=== PATIENT | male | born 1935 | race Caucasian/White ===

== ENCOUNTER 2017-07-23 13:42 | Inpatient (IN) | payer OTHER, BC ==
[2017-07-23 16:17] LABS: PLATELET COUNT 231 10^3/uL (150-400)
--- NOTE | 2017-07-23 16:18 | EDPHY ---
H & P <Doug Stafford - Last Filed: 07/23/17 21:43> Stated Complaint: confused - Personal History Current Tetanus/Diphtheria Vaccine: Unsure Current Tetanus Diphtheria and Acellular Pertussis (TDAP): Unsure - Medical/Surgical History Hx Asthma: No Hx Chronic Respiratory Disease: No Hx Diabetes: No Hx Cardiac Disease: Yes Hx Renal Disease: No Hx Cirrhosis: No Hx Alcoholism: No Hx HIV/AIDS: No Hx Splenectomy or Spleen Trauma: No Other PMH: BPH, CAD, reflux, cervical surgery, - Social History Smoking Status: Never smoked <Dionne Rasmussen - Last Filed: 07/24/17 23:05> Time Seen by Provider: 07/23/17 14:54 HPI/ROS: CHIEF COMPLAINT: Concerns about mental health stability HISTORY OF PRESENT ILLNESS: 82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 They both provide history. The patient informs me that he has been involved in an argument with his , left his home in [place] few days ago after an argument with his . He is in the ER with a family friend who relays to me in private that she has been receiving unusual , unsolicitied emails, most recently a few nights ago which the patient' s friend describes as lengthy, rambling, manifesto-style e-mail of several pages that was sent to her as well as the magazine editor of the [employer]. 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 REVIEW OF SYSTEMS: A ten point review of systems was performed and is negative with the exception of the items mentioned in the HPI PAST MEDICAL & SURGICAL HISTORY: Metastatic prostate cancer, cardiac stenting. SOCIAL HISTORY: Denies acute alcohol or drug use. Current living at the [facility] PHYSICAL EXAM (Prior to examination, patient consented to physical exam, hands were washed and my usual and customary physical exam procedures followed) 1) GENERAL: Well-developed, well-nourished, alert and oriented. Appears to be in no acute distress. 2) HEAD: Normocephalic, atraumatic 3) HEENT: Pupils equal, round, reactive to light bilaterally. Sclera anicteric. 4) NECK: Full range of motion, no meningeal signs. 5) LUNGS: Clear auscultation bilaterally, no wheezes, no rhonchi, no retractions. 6) HEART: Regular rate and rhythm, no murmur, no heave, no gallop. 7) ABDOMEN: No guarding, no rebound, no focal tenderness, negative McBurney's,, 8) MUSCULOSKELETAL: Moving all extremities, no focal areas of tenderness, no obvious trauma. No peripheral edema or discoloration. 9) BACK: No CVA tenderness, no midline vertebral tenderness, no fluctuance, no step-off, no obvious trauma, no visual or palpable abnormality. 10) SKIN: No rash, no petechiae. 11) Psychiatric: Patient is oriented X 3, there is no agitation. He is answering questions appropriately. DIFFERENTIAL DIAGNOSIS: In no particular include but limited to delirium, dementia, intracranial malignancy (Dionne Rasmussen) Constitutional: Initial Vital Signs Temperature (C) 36.4 C 07/23/17 13:51 Heart Rate 76 07/23/17 13:51 Respiratory Rate 16 07/23/17 13:51 Blood Pressure 173/79 H 07/23/17 13:51 O2 Sat (%) 96 07/23/17 13:51 O2 Delivery Mode Room Air Allergies/Adverse Reactions: No Known Allergies Allergy (Verified 07/23/17 13:50) Home Medications: Medication Instructions Recorded Zolpidem Tartrate [Ambien 10 mg] 5 - 10 mg PO DAILY PRN 07/14/14 Bicalutamide [Casodex (*)] 50 mg PO DAILY 07/23/17 Herbals/Supplements -Info Only 1 tab PO DAILY 07/23/17 traMADol [Ultram 50 mg (*)] 50 mg PO DAILY PRN 07/23/17 Medical Decision Making - Diagnostics Imaging: Discussed imaging studies w/ behavioral health care coordinator Radiologist, I viewed and interpreted images myself <Doug Stafford - Last Filed: 07/23/17 21:43> <Dionne Rasmussen - Last Filed: 07/24/17 23:05> ED Course/Re-evaluation: Study: CT of the Head Indication: Altered mental status Results: CT scan of the body parts was obtained. The results of the study are normal. The study was read by the radiologist, Dr. Navarro. I viewed the images myself on the PACS system. I re-evaluated this patient at 6:15 p.m.. He has had a long a opportunity to chat with his son who is very reasonable. His son and I agree that performing a head CT scan would be the best option simply because he is an 82-year-old gentleman with history of prostate cancer and he is here with some new onset altered mental status. I believe his paranoia a delusional manic he state to be baseline psychiatric. We will get a psychiatric pending at this time. The patient adamantly refuses a CT scan. He has full capacity to make decision. 7:15 PM- The patient agreed to a head CT which shows no acute findings for his symptoms. I had a long discussion with the psychiatric team. They do not feel like his recent too weak altered mentation is secondary to a psychiatric disorder at his age. Both of his siblings are in agreement that he changed significantly over the last 2 weeks and also correlates with him eating edible marijuana products. He is positive for marijuana. He also endorses the fact he has been using edibles. I have discussed the case with Dr. Reg Veloz who will accept the patient for admission until he clears. All of his laboratory studies and neuro imaging or unremarkable except for the urine tox marijuana. 9:45 PM- Dr. Veloz evaluated this patient and will admit him but feels that this may be psychiatric in nature as his personal history is not consistent with a psychiatrically stable person and family reports he has had similar but less severe episodes in the past. Dr. Veloz feels that he may benefit from an MRI to rule out frontal lobe conditions. I talked with Dr. Balbuena, psychiatry, who will consult. (Doug Stafford) 4:00 p.m.: I spoke with the patient's , Gwen Rae, phone [phone], at this time. She is currently in [place] managing her restaurant. She informs me that she notes a progressive decline the patient's of mental status, he has become progressively more agitated, she has concerns about his ability to care for himself and does not feel he should be allowed to leave the emergency department without, at a minimum, mental health evaluation. Patient's friend, Latisha Bach, [phone]. 4:[address] the patient on a detainer as his friend and have expressed progressive deterioration of mental condition and concerns over his ability to care for himself. 4:37 pm: Spoke with the patient's son Jessee, informs at the patient' s other son, Yong,a physician in [place], is en route to [facility] 5:00 p.m.: Care turned over to Dr. Doug Stafford (Dionne Rasmussen) - Data Points Laboratory Results: Laboratory Results 07/23/17 16:00 07/23/17 16:00 07/23/17 16:14 RPR Pending Medications Given: Bicalutamide (Casodex) 50 mg PO DAILY [facility] Stop: 01/20/18 08:59 Last Admin: 07/24/17 10:03 Dose: Not Given Enoxaparin Sodium (Lovenox) 40 mg SC DAILY [facility] Stop: 01/20/18 08:59 Last Admin: 07/24/17 10:06 Dose: Not Given Quetiapine Fumarate (Seroquel) 12.5 mg PO BID [facility] Stop: 01/20/18 20:59 Last Admin: 07/24/17 22:43 Dose: 12.5 mg Discontinued Medications Haloperidol (Haldol) 1 mg PO ONCE ONE Stop: 07/23/17 22:07 Last Admin: 07/23/17 23:33 Dose: Not Given Sodium Chloride (Ns) 1,000 mls @ 0 mls/hr IV ONCE ONE PRN Reason: Wide Open Stop: 07/23/17 16:42 Last Admin: 07/23/17 18:56 Dose: Not Given Departure <Doug Stafford - Last Filed: 07/23/17 21:43> <Dionne Rasmussen - Last Filed: 07/24/17 23:05> - Departure Disposition: [facility] Acute Clinical Impression: Altered mental status Qualifiers: Altered mental status type: delirium Qualified Code(s): R41.0 - Disorientation , unspecified Condition: Fair
[2017-07-23] MEDS ORDERED: NS 1,000 ML IV ONE (16:41)
[2017-07-23] MEDS ORDERED: IOPAMIDOL (ISOVUE 370) 100 ML BTL IV ONE (16:46)
[2017-07-23] MEDS ORDERED: ACETAMINOPHEN 325 MG TAB PO PRN (22:04)
[2017-07-23] MEDS ORDERED: ONDANSETRON DISINTEGRATING 4 MG TAB PO PRN (22:04)
[2017-07-23] MEDS ORDERED: ONDANSETRON 4 MG/2 ML VIAL IVP PRN (22:04)
[2017-07-23] MEDS ORDERED: HALOPERIDOL 1 MG TAB PO ONE (22:06)
[2017-07-23] MEDS ORDERED: HALOPERIDOL 1 MG TAB PO PRN (22:06)
--- NOTE | 2017-07-23 23:12 | GHP ---
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 The patient sounds like he has prostate cancer. He has been using marijuana edibles for a period of time. He does not appear acutely intoxicated. He says he h as not used them in a couple of weeks. He does describe the 10 mg jellybeans, which is a somewhat hi gh dose of an edible. The patient then gets into a story of some marital discord with the 6th . It sounds like he has been living in places. His stories have a fair amount of paranoia in them. H is son is present at the bedside who acknowledges this paranoia and states the behavior is different for him, but then when I pushed a little bit further, it sounds like in the setting of relationship b reak ups in the past, the patient has become a little bit unstable or at least dramatic. The patient denies any fever, chills, cough, sputum, nausea, vomiting, diarrhea. He does not have a headache. He does not drink alcohol. He has not used other substances. He does not take benzodiazepine or opi ates at home. The patient does not appear intoxicated on alcohol. No fever, chills, cough, sputum, nausea, vomiting, diarrhea. No urgency, frequency, dysuria. REVIEW OF SYSTEMS: A complete 10-point review of systems conducted, negative except as noted in the HPI. PAST MEDICAL HISTORY: Prostate cancer for which he takes a bicalutamide. He does take Ambien and tr amadol, is not clear how much he has been using. SOCIAL HISTORY: He is a nonsmoker. 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 FAMILY HISTORY: Son is healthy, at the bedside. PHYSICAL EXAMINATION: VITAL SIGNS: Temp 36.4, blood pressure 173/79, now 142/80, pulse 76, breathin g 16 times a minute, 96% on room air. GENERAL: No acute distress. HEENT: Sclerae anicteric. Oropha rynx clear. Mucous membranes are moist. NECK: Supple without lymphadenopathy or JVD. LUNGS: Ngoc r to auscultation bilaterally. HEART: S1, S2 without murmurs. ABDOMEN: Soft, nontender, nondistended. LOWER EXTREMITIES: Withou t edema. Calves are nontender. SKIN: Without rash. NEUROLOGIC: Exam is nonfocal. Mental status ex am: The patient is somewhat manic in nature with pressured speech that is tangential. There is an e lement of paranoia to his speech. LABS: Tox screen is positive for marijuana. UA shows 3-5 white cells. Sodium 140, potassium 4.1, c hloride 101, bicarb 26, BUN 16, creatinine 0.9, glucose 127. CBC is normal. Head CT is unremarkable . I discussed the case Dr. Doug Stafford of the emergency department. ASSESSMENT AND PLAN: An 82-year-old gentleman presents with paranoid encephalopathy of uncertain amanda ology. 1. Encephalopathy/paranoia. The differential includes marijuana intoxication, frontal CVA, geriatri c depression with psychotic features. I actually think the last is the most likely diagnosis. The p atient appears medically well. This could be an unusual but conceivable reaction to marijuana. He h as an otherwise nonfocal neurologic exam, so I think a frontal CVA is unlikely. He was seen by a [facility] non physician provider in the emergency department, who felt it was not psych. I disagree with this assessment. Dr. Batool Balbuena is going to speak with Dr. Stafford and will hopefully see the patient in consultation tomorrow. I think it is important to rule out a CVA so will check an MRI of the brain . We will check a TSH. I will give him 1 mg of Haldol and then as needed thereafter. I will hold h is Ambien and tramadol as these medications could be exacerbating the situation. 2. Query marijuana intoxication. If this resolves tomorrow, then perhaps this is all marijuana into xication. The edibles can be powerful, particularly in people who have some difficulty with mood sta bility, but this again would be unusual presentation. 3. Hyperglycemia. This is a mild nonfasting sample. 4. Prostate cancer. Continue his Casodex. DISPOSITION: Inpatient status. /[id number]/MODL
[2017-07-24] MEDS: BICALUTAMIDE 50 MG TAB PO SCH (10:03)
[2017-07-24] MEDS: ENOXAPARIN 40 MG/0.4 ML SYR SC SCH (10:06)
--- NOTE | 2017-07-24 10:28 | ASMTCMCOM ---
CM Note CM Note Notes: Pt. is an 82-year-old man admitted with confusion, paranoia, and encephalopathy. Hx. prostate cancer. Hx. of having six sequential wives per H&P. Hx. of using marijuana edibles. Unsure if this admission is related to THC use. [facility] reportedly saw Pt, but hospitalist ordered psychiatric evaluation. Reportedly, Batool Balbuena MD to see Pt. today. Tox screen positive for THC. Pt. has a son Yong who is involved. 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 No PT/OT ordered as of yet. CM to follow. Date Signed: 07/24/2017 10:27 AM Electronically Signed By:Katy Middleton LCSW
--- NOTE | 2017-07-24 15:23 | HOSPPROG ---
Hospitalist Progress Note Assessment/Plan: 82 yo M with hx of prostate cancer presenting with AMS. # acute encephalopathy: with paranoia and tangential thoughts, baseline somewhat unclear with a hx of what sounds like erratic behavior for quite some time and given his age concerning that this may not all be psychiatric in nature. Brain MRI without acute findings, personally reviewed. No e/o infection. Does have a hx of ingestion of MJ but unclear how recent that has been. Neuro recommending quetiapine and f/u with them after dc. Psych recommending further testing. Will check b12/rpr for further evaluation. # psychiatric sxs: as above, appreciate psych eval # MJ use: unclear how this is contributing as timeline of use is unclear, monitoring, recommending cessation # hx of prostate cancer: continue casodex # dispo: IP status, given ongoing mental instability and uncertain clinical picture will require > 48 hours stay Patient new to my care. Care plan reviewed with psychiatry. Old records reviewed. Subjective: no acute overnight events, patient remains somehwat agitated Objective: Vital Signs Temp Pulse Resp BP Pulse Ox 36.6 C 50 L 16 128/76 H 95 07/24/17 11:03 07/24/17 11:03 07/24/17 11:03 07/24/17 11:03 07/24/17 11:03 Laboratory Results 07/24/17 04:29 07/23/17 07/24/17 07/25/17 05:59 05:59 05:59 Intake Total 250 Output Total 175 225 Balance 75 -225 awake alert anicteric op clear rrr no mrg cta b soft nt nd no cce warm dry well perfused - Time Spent With Patient Time Spent with Patient: greater than 35 minutes Time Spent with Patient: Greater than 35 minutes spent on this patients care, greater than 50% of time spent counseling, educating, and coordinating care regarding the above mentioned plan. ICD10 Worksheet Patient Problems: Problems Problem Status Onset Cervical stenosis of spinal canal Acute Altered mental status Acute
--- NOTE | 2017-07-24 16:33 | NEUROPROG ---
Assessment: HOSPITAL NEUROLOGY CONSULT REQUESTING: Lenard Mcmanus MD REASON: AMS HPI: 82 year old right-handed man admitted yesterday, 07/23, through the ED due to AMS. Patient is very pleasant and cooperative and relays a rather complex and winding story, which never ends with him arriving here. He states his left for a trip to [facility], which inspired a trip to [place]. He likes to travel and see different cities - his primary residence is in [place]. He states he wanted to do some work with the [employer] group in [facility], so got an AirBnB. He states he left the AirBnB after a few days and checked into the [facility], as he wanted a change of scenery and nicer accommodations. On arriving, he states management kept calling his room, wanting to check for a leak in the shower - he declined, as he thought something was awry since he hadn 't noted any shower leak. He states management kept calling tying to get him to leave his room. He states this is because they were trying to do him harm. He also notes that he just didn't want to leave the room for any reason " because someone could just bump into me and kill me, I mean, I'm 82 years old." He eventually left the room, because the [facility] reportedly offered to let him stay for 3 months if he changed rooms. He was agreeable to this, and states the new room had no power, phone service or internet, which alarmed him because he thought this was an ideal setup for someone to kill him without being identified. This story is also intertwined with that of his returning from [facility] and wanting to take his car for herself. He also notes his son has been trying to get him to move into a mcc and has been "unstable and very explosive towards me." In any event, he somehow made it to the ED via Uber with a friend. His mental status was of concern given his paranoia. I don't have any family available for interview, but per the record he has been 6 times and with each subsequent separation there have been indications of worsening stability. He denies any hallucinations, gait change, weakness, sensory loss, visual disturbance, HAs, periods of lost time, LOC, adventitial movements, stiffness/ rigidity in the limbs. He does have a background of cannabis use - states he uses edibles but hasn't done so for 2 weeks. He uses zolpidem 3 nights weekly. He also uses tramadol PRN. He is agreeable to being transitioned to a supervised living setting and also to taking medications. He states he knows the hospital staff is trying to help. ROS: As per the HPI, otherwise a complete 12 point ROS was performed and is negative ALLERGIES AND MEDS: As recorded in the EMR - reviewed and reconciled PFSH: As per the intake H&P by Dr. Veloz from yesterday EXAM: VS reviewed in EMR GEN: WDWN laying in NAD HEENT: NCAT, sclera anicteric, conjunctiva not injected, MMM, oropharynx clear, no scalp tenderness NECK: supple, nontender, no meningismus CV: RRR s1 s2 wo m/r/c/g. Carotid pulses 2+ wo bruit NEURO: MS: awake, alert, oriented to all spheres except specific day. Speech nondysarthric, but content quite tangential. No language disturbance. Follows commands. Attends to both sides. Recent/remote memory grossly intact. Mood euthymic. Good fund of knowledge. Seems to have good insight. No hallucinations. He is paranoid. CN: pupils 3mm round and reactive. Unable to visualize fundi. VFF. Primary gaze centered. Full ocular motility. Smooth pursuits intact. Saccades with undershoot and impersistence. Facial sensation preserved. Face symmetric. Hearing grossly intact to finger rub. Palatoglossal movements intact. Shoulder shrug and head turn strong. MOTOR: normal bulk/tone. No adventitial movements. Full power throughout. SENSORY: intact LT/PP in all extremities. No extinction. COORD: no ataxia FN/HS. Noel preserved. REFLEX: plantars down. No clonus. DTRS absent. GAIT: deferred to PT safety eval. 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 I don't detect anything else abnormal on exam. Imaging is unremarkable for his age. 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 Psychiatry has evaluated and is not convinced this is a primary psychiatric issue. Patient adamantly denies cannabis ingestion for 2 weeks - UDS does reflect ingestion within the last 30 days +/-, but nothing more specific. At this point, would recommend a trial of symptomatic management with a low- dose atypical antipsychotic such as quetiapine 12.5mg qAM and qHS. Could consider adding a cholinesterase inhibitor for behavioral control, but this takes 4-6 weeks to start working, so a faster acting agent may be better in the short-term to at least get him a safe disposition. He is agreeable to an [facility] type situation. I would recommend neuropsychology consultation for full expert diagnostic testing after discharge. He can followup with me after discharge and we can facilitate neuropsych testing with Dr. Pierson. He should abstain from cannabis going forward. Pharmacologic intervention should be supervised and well coordinated. Will sign off. Recall PRN. Objective: Vital Signs Temp Pulse Resp BP Pulse Ox 36.6 C 50 L 16 128/76 H 95 07/24/17 11:03 07/24/17 11:03 07/24/17 11:03 07/24/17 11:03 07/24/17 11:03 Laboratory Results 07/24/17 04:29 07/23/17 07/24/17 07/25/17 05:59 05:59 05:59 Intake Total 250 Output Total 175 225 Balance 75 -225 Allergies/Adverse Reactions: No Known Allergies Allergy (Verified 07/23/17 13:50)
--- NOTE | 2017-07-24 18:33 | PDMN ---
Medical Necessity Medical necessity: C/M review: est. > 2 MN LOS for eval and TX of acute and persistent encephalopathy with paranoia and tangential thoughts (psychiatric signs and symptoms), baseline somewhat unclear with history of what sounds like erratic behavior for quite some time - given patient's age concerning this may not all be psychiatric in nature, mental instability, unclear clinical picture requiring Neurology consult, Psychiatric consult, brain MRI without acute findings, planned labs -vitamin B12 and RPR, ongoing initiation of oral Quetiapine, further testing as recommended by Psychiatry, comorbid history of marijuana use (unclear how this is a contributing factor as timeline of use is unclear, monitoring, recommend cessation, history of prostate cancer per 2017 Hospitalist progress note.
[2017-07-24] MEDS: QUEtiapine FUMARATE 25 MG TAB PO SCH (22:43)
--- NOTE | 2017-07-25 01:06 | BCON ---
[f rep st] BEHAVIORAL HEALTH CONSULTATION DATE OF CONSULTATION: 07/24/2017 REQUESTING SERVICE/PROVIDER: Hospitalist, Dr. Reg Veloz. REASON FOR CONSULT: Evaluate and make recommendation for psychosis. 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 CHIEF COMPLAINT: "I'm confused. 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 He gave reason for doing so because he likes [place] (used to live here long ago), finds location more pleasant, and didn't want to stay by himself in apartment. He admitted initially planning to go to [facility] with but then changed his mind because travel seemed it would be a hassle. He initially went to stay in an AirBnB but then did not feel safe there, that if someone wanted to harm him, no one would be able to protect him there, and his car was "just out on the street" unprotected as well,so he moved into a room at the [facility], where he initially felt safer. He reported enjoying his first few days at the [facility] but then noted some "concerning" occurrences, including receiving a phone call from the management about a leak in his shower, adding that he did not notice any leak. Then he states he was told they were unable to find his credit card on file, which he found curious. Another time the fire alarm went off in his room, but he did not leave his room because he was concerned this was some sort trick to get him out of his room, so he called the front edger to tell them about his not leaving, and maintains they said it was okay because there was no fire and staff didn't seem aware of an alarm. In light of these odd occurrences, and with his continued perseveration on wondering why his had shown him a gun before she left the country, patient began "sensing someone wanted to harm me and there would be no record of this... " This then led to him needing to "ensure there would be some type of record" of his , which he felt could happen at any time, so he called the police department a few times, also tried to hire a security service, called attorneys , and moved rooms 3 times during his approximate 8-day stay at the [facility]. He did state the police came out to his room at one point, "but they weren't too happy about it" since there was nothing acute going on. He admitted becoming so fearful for his life that he stopped leaving his room at the [facility] for several days, and then apparently began receiving phone calls from the front edger staff and his son expressing concerns regarding this, and concerns about him not eating, although he reported ordering food to his room a few times and having a supply of paxton. It seems at one point police knocked on his door, but he stated he would not let them in; they possibly had been sent out to do a welfare check, and "I talked to them through the door" and did not allow them in , "they just asked me if I was okay", and they left a card under the door " which looked legitimate." However, patient found all this "very odd." Patient also expressed concerns his son was acting oddly, by getting angry with him and seeming to "take my 's side" as he apparently expressed frustrations with patient's behaviors, which patient felt were entirely reasonable. He admitted that friends and family may have been concerned by his e-mails and may have thought he had "psychological problems" because (according to the patient) he was mentioning phrases such as "if I live or , and that I wasn't sure if I was going to be here tomorrow..." He maintained consistently that he absolutely did not have any suicidal ideation, no thoughts, plan or intent to ever harm himself, but repeatedly stated feeling that his life was in danger if he left the hotel room, and that he felt someone was trying to kill him, although he had no idea who or why, and that he would be killed with no evidence of a crime. For this reason, before , he wanted to pass on information he had learned through experience about early diagnosis and treatment of breast cancer, and how other lives could be saved in the future. Patient perseverated on why his wanted car back, not finding it unreasonable that she find alternative transportation to work ("like an Uber, or her son can pick her up and take her to work") upon her return from [facility]. She owns a restaurant in [place]. He "didn't want her to drive my Mini Elmer" which he left without accessible keys at their apartment, and didn't want to return their Michelle he drove to [place] "because I paid for most of it." When son expressed frustration with this behavior, patient felt son was siding with his , and found this also "unusual"P. Patient relates that everything was at baseline until prior to leaving for [facility], showed him that she had a gun in the home and asked him to check if it was loaded or not because she did not like guns. He reports not having known about this before, and that it had been left to her many years ago by a prior . He reports removing the clip, and states nothing further came of this until he "started thinking about it later", after coming to [place] and after left to [facility], "wondering why she showed that to me." He perseverated on this, stating that he then brought this up with several police, other friends, and attorneys regarding her possessing this weapon, denying that there were ever any threats made with the weapon or that there were any expressions or thoughts to harm herself, himself, or anyone with this weapon. Just that she had one, and wondered why she showed it. He reports learning it was entirely legal for her to own this, and there should be no concerns as there were no threats. He admits, however, continuing to perseverate on why she had this in her apartment where he lives with her and why she showed it to him before she left. Patient feels the entire situation and current hospitalization has been blown out of proportion and, "It all started with the gun incident and the car" ( patient's puzzlement as to why showed him the gun, and why she was so insistent to have car available to drive to work, and why son "took her side"). Regarding any psychiatric symptoms, patient consistently denied feeling depressed or experiencing anhedonia. Although he reports due to a hip surgery, he had been unable to engage in previously enjoyable activities like tennis, but did not have a loss of interest in them. 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 He admits concentration "is sometimes a problem" as is his memory; he admits at times it has been "harder to figure things out," especially when trying to use the computer in the hotel, using the phone to dial out of the hotel room. Appetite overall has been decreased. He denied any suicidal thoughts, passive, or plan or intent. Sleep has generally has been more interrupted in the last few weeks , easily awakening when he hears something, and states he has needed Ambien about 3x/week. Energy is "fine for what I do". He denied having auditory hallucinations such as name being called nor hearing any voices or running commentary on his thoughts. Occasionally he admits having heard the phone ring , and by the time he answers it, no one is there. He denied having any visual hallucinations of any type including odd figures or shadows. He denied any olfactory hallucinations except twice smelled something in his hotel room "a sweet smell coming from the air conditioning" but stated both times this did not last long and did not cause him to switch rooms. He denied any manic symptoms of racing thoughts, decreased need for sleep, extreme irritability, or excessive spending sprees. He reports alevism involvement with Christian sometimes. He denied any history of jarret or hypomania and denied history of psychosis. He denied feeling paranoid, "I'm convinced these things are happening." Patient denied any anxiety or panic attacks. However, he admits having difficulty being alone. Also admits to using THC jellybeans "to relax". He denied any thoughts to harm to others, but does feel his life is in danger, and that he could be harmed or killed "with no evidence or signs of a crime". PAST PSYCHIATRIC HISTORY: No prior psychiatric treatment or diagnosis, no prior psychiatric hospitalization. He denies seeing any therapist or being prescribed any psychiatric medication during his life. He did state, however, over the past month, he occasionally talked with a Mandaen "therapist" and was assigned a Giuliano Mandaen sage when he attended a [facility] center in [place]. Safety as noted above, reporting no history of harm to self or others , nor such thoughts. SUBSTANCE USE HISTORY: The patient reports no alcohol use, except at night, he will have 1 beer or 1 glass of wine a night, and nothing recently. States when he lived in [place] several years ago, he would "share a bottle of wine" with his when they went out, but denied any history of alcohol withdrawal symptoms or tolerance/dependence. No history of substance abuse treatment. He admitted using marijuana since living in [place] over the past 3 years including vaping marijuana and using edibles. He reports "CBD/THC in 1:1 concentration" using approximately 1 jellybean daily at night "for relaxation," which he states was 10 mg. He consistently maintains that he has not used any in the last 2 possibly 3 weeks, and none since he has been in [place], althoughdid bring them to [place] from [place]. He was aware his urine drug screen was positive for THC, "how do you know it was me...someone could have poured some marijuana in my glass, or put it in my drink..." Again maintaining no use for 2 to 3 weeks, and seemed reliably with this information, stating he would have no reason to not be forthcoming. He admits also that his had asked him if he was still using marijuana. He denied any other substance use. FAMILY PSYCHIATRIC/SUBSTANCE USE HISTORY: Noncontributory. One grandparent with Alzheimer's disease. Father and paternal uncle with prostate cancer. Mother of breast cancer at 43 years old. PAST MEDICAL HISTORY: Notable for history of cervical DJD/severe cervical spinal stenosis with cord gliosis, cervical diskectomy in 2015, history of cardiac stenting, history of elevated PSA and prostate cancer, BPH, cataract surgery, gallbladder surgery, history of avulsion of ischial tuberosity and hip pain, no history of traumatic brain injury or seizures per patient. States he moved to [place] 3 years ago to have surgery and treatment for prostate cancer. HOME MEDICATIONS: Includes Ambien; he states he uses 5 mg approximately 3 times per week, very infrequently 10 mg at a time. Tramadol 1 to 2 times per week p.r.n. pain. Bicalutamide, which he states is an "androgen deprivation pill" he started last year for elevated PSA/prostate cancer. ALLERGIES: No known drug allergies. LEGAL: No history, and patient denies. SOCIAL HISTORY: Patient grew up in [place], has a sister, father was a physician, mother at 43 when patient was 15 or 16 years old. 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 Patient reports being to his "I think 5th ". He has known her for 3 years, met her after he relocated to [place] from [place], and has only been to her for 1 year. "I didn't want her grandkids to think we were living [place] [facility]". He have been living with her in her apartment in [facility] in [place], where she owns and runs an [employer] restaurant. He reports moving back out to [place] in 2015 from [place]. He his in [place] after over 7 years. 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 He worked in same town where his father was a general practitioner until his at 89. After divorce, he returned to [place], then back to [place] where he lived for 7-8 years, remarried, and enjoyed an active social life attending shows, concerts, playing tennis. Ultimately he and returned to [place] 3 years ago after a hip injury and for prostate cancer treatment, and to be closer to his sons. He met current , and he felt he could help her and she was helpful to him "driving me to appointments" and perhaps also emotionally supportive. He admits, "I think I was about 5 times...I was always more interested in my work..." but he also felt no one ever loved him as much as his mother did. Presently, patient is not sure that he wants to return to live with his of 1 year in [place]. He did not like living in [place], prefers to live in [place]. He is not sure where he would live locally. He does not want to live with his son and does not feel committed to the marriage. He does acknowledge needing some assistance and feeling sometimes forgetful and "would not mind living in some type of assisted living" because he recognizes that is what he may need at this point in his life. Also, he feels it would be safer for him to be in such a setting. MENTAL STATUS EXAMINATION: The patient was an elderly gentleman, balding with sparse schwartz hair, cooperative, sitting upright in hospital bed. Good eye contact. He was engaging in conversation, articulate, talkative, very over-inclusive and rambling in attempt to fully share his story to try and help make sense of the confusion he feels and the puzzlement he has had over why others have been concerned about him. He did have increased rate of speech but was interruptible and not pressured. He was circumferential, but not tangential. Mood was, "I feel confused." Affect was restricted and appropriate to content of conversation. Thought processes were perseverative, rambling, over-inclusive, disinhibited. Thought content was notable for paranoid themes and paranoid delusionals. There was no evidence of responding to internal stimuli. He denied any auditory or visual hallucinations. Insight was poor, essentially with no insight into his paranoia and delusions. Judgment was impaired accordingly. Cognition was conversationally intact. MOCA (Abran Cognitive Assessment Test) was done. Patient scored 19/30. He performed notably poorly on visuospatial/executive function with impaired clock drawing, not placing numbers correctly although hands were in correct position but not on correct numbers (no number 11, filled in numbers around inside of [place] without concern for correct placement, running out of room with number 10 next to 12 and did not recognize error). He was unable to copy a cube correctly despite 2 tries. His Trails B was impaired as well, just connecting numbers/letters in stimulus-bound manner. He was unable to spontaneously recall any of items but recalled 4 out of 5 with category and multiple choice cues. He missed the date ("30?") but otherwise was fully oriented to person, place, and time. He missed 2 on serial-7 subtractions and did make errors on attention testing, tapping extra a few times. ASSESSMENT: Neurocognitive disorder, unspecified, with psychosis. r/o depression with psychotic features. r/o psychosis due to THC. Given current information, and interview, there is no clear evidence of primary underlying psychotic or mood disorder based on information obtained. Patient has several factors likely contributing to his current presentation including symptoms for cognitive impairment/dementia with notable dysexecutive functioning but also again drug screen positive for THC and a self-reported history of using edibles which could also contribute to paranoia. However, patient has consistently reported not using any over the past 2 to 3 weeks. He has no insight into his paranoia, impairments, nor his inappropriate concerning behaviors as reported in record by family and friends. He does only note having difficulty with some memory and "figuring some things out", also concerns about his . He readily states he is willing to go to some type of group home facility or assisted living as he recognizes having a need for some assistance and support, and feels he would be safe there. RECOMMENDATIONS: -Recommend more formal speech cog assessment and occupational therapy evaluation for safety and to help with assessment of needs and possible placement. -No B12 labs noted in history, could add this to his labs as part of dementia workup. -Based on current assessment, he would not be appropriate for inpatient psychiatric treatment due to this not being a primary psychiatric disorder. However, there are concerns for his welfare were he to be discharged regarding supervision for his support due to his paranoia and resulting problematic behaviors driven by this paranoia as well as his marked dysexecutive function and lack of insight. -Will obtain more collateral from family/friends regarding baseline mental health and functioning, and level of support family is able to provide. -Concerns present for patient driving- with his current functioning, would not recommend patient be driving due to possible risks. -Avoid any medications that could worsen his cognition including benzodiazepines or opiates as well as anticholinergics. -Patient is willing to try medication to help increase sleep and appetite. He did not want to take any type of antipsychotic, which he states he has never taken such and does not feel he needs, but he could benefit from perhaps a very low dose of such a medication like Seroquel 12.5 or Zyprexa 2.5 mg at bedtime. He did agree to option of mirtazapine 7.5 mg for sleep, appetite, and mood; although he denies feeling particularly depressed, there are questions as to whether he has been depressed recently, with his report of feeling bored, isolated, minimal social contacts, decline in activities etc. -Spoke briefly with Neurology, who is in process of consulting on this patient as well- Neurology recommending Quetiapine low dose, and will discuss this with patient. If patient agreeable, would start with Quetiapine instead of Mirtazapine since psychosis is predominant symptom. Quetiapine also with mood stabilizing effects and less likely to cause extrapyramidal side effects. Thank you for this consultation. Will continue to follow along and make recommendations as indicated during his hospital course. /[id number]/MODL MTDD
[2017-07-25] MEDS: QUEtiapine FUMARATE 25 MG TAB PO SCH ×2 (10:18→21:45)
[2017-07-25] MEDS: BICALUTAMIDE 50 MG TAB PO SCH (10:19)
[2017-07-25] MEDS: ENOXAPARIN 40 MG/0.4 ML SYR SC SCH (10:20)
--- NOTE | 2017-07-25 10:37 | ASMTCMCOM ---
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 He is ambulatory but presents with confusion and paranoia. He will need placement, his son Yong has contacted [facility] in [facility]. Per RN, pt given consent to speak with Son Yong [phone]. CM called, Yong states he is mdpoa but concedes he does not have anything in writing, expained to son we will need to have pt sign that he wants Yogn as mdpoa or if pt unable we will need to establish a proxy, CM will discuss with MD. CM advised Yong to continue plan for AL at [facility] as that can take some time and we may need to transition pt to a SNF in the interim. Son agrees with plan, LEN w/f. DC Plan: TBD Date Signed: 07/25/2017 10:36 AM Electronically Signed By:Daniela Mayorga RN
--- NOTE | 2017-07-25 13:02 | HOSPPROG ---
Hospitalist Progress Note Assessment/Plan: 82 yo M with hx of prostate cancer presenting with AMS. # acute encephalopathy: with paranoia and tangential thoughts, baseline somewhat unclear with a hx of what sounds like erratic behavior for quite some time and given his age concerning that this may not all be psychiatric in nature. Brain MRI without acute findings, personally reviewed. No e/o infection. Does have a hx of ingestion of MJ but unclear how recent that has been and whether or not this is underlying these sxs. B12 within normal range, RPR pending. Suspicious for frontal lobe dementia. Patient continues to be paranoid, called police with concerns of a bomb threat overnight. He is hoping to dc to snf but concerns remain that he would be paranoid there as well. He does seem decisional to me, though paranoid and with delusional thought processes. Psych will continue to follow. # psychiatric sxs: as above, appreciate psych eval # MJ use: unclear how this is contributing as timeline of use is unclear, monitoring, recommending cessation # hx of prostate cancer: continue casodex # dispo: IP status, given ongoing mental instability and uncertain clinical picture will require > 48 hours stay. plan to dc to SNF. Patient requesting that I do not communicate with his son, and given that he is likely decisional I will not call son at this time. Care plan reviewed with psychiatry and CM Subjective: patient called police regarding concern of a bomb threat overnight, no other acute overnight events Objective: Vital Signs Temp Pulse Resp BP Pulse Ox 36.6 C 64 16 145/76 H 95 07/25/17 11:56 07/25/17 11:56 07/25/17 11:56 07/25/17 11:56 07/25/17 11:56 Laboratory Results 07/24/17 04:29 07/24/17 07/25/17 07/26/17 05:59 05:59 05:59 Intake Total 250 450 Output Total 175 625 Balance 75 -175 awake alert anicteric op clear rrr no mrg cta b soft nt nd no cce warm dry well perfused - Time Spent With Patient Time Spent with Patient: greater than 35 minutes Time Spent with Patient: Greater than 35 minutes spent on this patients care, greater than 50% of time spent counseling, educating, and coordinating care regarding the above mentioned plan. ICD10 Worksheet Patient Problems: Problems Problem Status Onset Altered mental status Acute Cervical stenosis of spinal canal Acute
--- NOTE | 2017-07-25 16:59 | ASMTCMCOM ---
CM Note CM Note Notes: Met w/pt re; dc SNF/AL. Pt now states he does not want me to speak with his son Yong. He states he feels very safe here and is not interested in SNF or AL, "maybe sometime in the future but right now i'm staying here until we figure out what is going on." Notified MD pt still getting work up, may need Ethics consult on Thursday, LEN w/f. DC Plan: TBD Date Signed: 07/25/2017 04:58 PM Electronically Signed By:Daniela Mayorga RN
[2017-07-26] MEDS: ENOXAPARIN 40 MG/0.4 ML SYR SC SCH (10:19)
[2017-07-26] MEDS: BICALUTAMIDE 50 MG TAB PO SCH (11:41)
[2017-07-26] MEDS: QUEtiapine FUMARATE 25 MG TAB PO SCH ×2 (14:09→21:20)
--- NOTE | 2017-07-26 14:46 | ASMTCMCOM ---
CM Note CM Note Notes: Chart reviewed. Discussed with MD. Met with patient this afternoon. During my meeting he was telling me the events that brought him to the hospital. He goes into great detail about his time since 07/06 when he voluntarily left his home and came to [facility]. He seems to have periods of extreme delusion and paranoia . He is refusing to speak to his family at present. He is refusing medications and therapies. Speech unable to assess his cognitive abilities as he refused to work with them. He states he is willing to go to assisted living if he has a network security officer. There is no POA. His son Yong and his are to come to a family meeting tomorrow at [address] Balbuena and Dr. Mcmanus to attend as well. Dr. Balbuena can be reached at [phone]. CM to follow. Plan: Assisted living vs SNF Date Signed: 07/26/2017 02:46 PM Electronically Signed By:Remedios Alcaraz RN
--- NOTE | 2017-07-26 15:20 | HOSPPROG ---
Hospitalist Progress Note Assessment/Plan: 82 yo M with hx of prostate cancer presenting with AMS. # acute encephalopathy: today patient is even more clearly delusional and paranoid to the extent where it seems that his connection with reality is very limited. He continues to ask that we not involve his family, however clear today that he does not have decisional capacity. Discussed at length with CM, patients son and plan to have a family meeting in the am, hopefully psychiatry will be able to be involved as well. Patient is refusing seroquel or any other medications at this time # psychiatric sxs: as above, today query that he is experiencing both auditory and visual hallucinations # MJ use: unclear how this is contributing as timeline of use is unclear, monitoring, recommending cessation # hx of prostate cancer: continue casodex # dispo: IP status, given ongoing mental instability and uncertain clinical picture will require > 48 hours stay. plan to dc to SNF. Will need placement and will have family meeting in the am to help determine how to best achieve that Subjective: patient states that he would like security back in his room, states that last night when the helicopter landed outside there was a man who came in and told him that it was ready to take him to a secure facility, he continues to refuse to leave his room or talk to his family Objective: Vital Signs Temp Pulse Resp BP Pulse Ox 36.4 C 67 16 148/82 H 94 07/26/17 11:22 07/26/17 11:22 07/26/17 11:22 07/26/17 11:22 07/26/17 11:22 Laboratory Results 07/24/17 04:29 07/25/17 07/26/17 07/27/17 05:59 05:59 05:59 Intake Total 450 860 Output Total 625 300 Balance -175 560 awake alert anicteric op clear rrr no mrg cta b soft nt nd no cce warm dry well perfused - Time Spent With Patient Time Spent with Patient: greater than 35 minutes Time Spent with Patient: Greater than 35 minutes spent on this patients care, greater than 50% of time spent counseling, educating, and coordinating care regarding the above mentioned plan. ICD10 Worksheet Patient Problems: Problems Problem Status Onset Altered mental status Acute Cervical stenosis of spinal canal Acute
[2017-07-27] MEDS: BICALUTAMIDE 50 MG TAB PO SCH (08:14)
[2017-07-27] MEDS: QUEtiapine FUMARATE 25 MG TAB PO SCH (08:14)
[2017-07-27] MEDS: ENOXAPARIN 40 MG/0.4 ML SYR SC SCH (08:14)
--- NOTE | 2017-07-27 18:39 | HOSPPROG ---
Hospitalist Progress Note Assessment/Plan: 82 yo M with hx of prostate cancer presenting with AMS. # acute encephalopathy: continues to be extremely paranoid and fearful, refuses to leave his room or have visitors that are not staff, remains fearful that someone is trying to kill him or that there is some kind of plot to kill him. Refusing daytime seroquel so changing dosing to night only with hopes this will help # dementia: all in all concensus is that his above sxs are related to worsening dementia with some kind of likely underlying psychiatric d/o with years of paranoia and erratic behavior per patients son. Plan is to attempt to find safe placement. # psychiatric sxs: as above, c/w paranoia/delusions/psychosis. At this point feel that this is likely largely related to dementia rather than primary psychiatric issues # MJ use: unclear how this is contributing as timeline of use is unclear, monitoring, recommending cessation # hx of prostate cancer: continue casodex # dispo: IP status, given ongoing mental instability and uncertain clinical picture will require > 48 hours stay. plan to dc to SNF. Prolonged care time spent with this patient from 3:00-345 pm and again from 430- 450pm in coordination with family and case management attempting to come up with ongoing care plan Subjective: no significant overnight evetns, continues to be fearful for his life and suspcious that there is a plot to harm him Objective: Vital Signs Temp Pulse Resp BP Pulse Ox 36.9 C 64 16 117/59 L 95 07/27/17 16:00 07/27/17 16:00 07/27/17 16:00 07/27/17 16:00 07/27/17 16:00 Laboratory Results 07/24/17 04:29 07/26/17 07/27/17 07/28/17 05:59 05:59 05:59 Intake Total 860 550 Output Total 300 700 300 Balance 560 -150 -300 awake alert anicteric op clear rrr no mrg cta b soft nt nd no cce warm dry well perfused ICD10 Worksheet Patient Problems: Problems Problem Status Onset Altered mental status Acute Cervical stenosis of spinal canal Acute
[2017-07-27] MEDS ORDERED: QUEtiapine FUMARATE 25 MG TAB PO SCH (21:00)
[2017-07-28] MEDS: ENOXAPARIN 40 MG/0.4 ML SYR SC SCH (10:04)
[2017-07-28] MEDS: BICALUTAMIDE 50 MG TAB PO SCH (10:04)
--- NOTE | 2017-07-28 13:05 | HOSPPROG ---
Hospitalist Progress Note Assessment/Plan: 82 yo M with hx of prostate cancer presenting with AMS. # acute encephalopathy: presumed 2/2 dementia as next though with new onset significant paranoia and delusions. No improvement since starting seroquel, though he has been refusing his daytime dose as below. # dementia: as above, exhibited largely by paranoia and delusions rather than memory type issues. Will need placement as patient is not safe to care for himself. # psychosis: in setting of presumed dementia, according to patients son he has had a history of paranoia in the past that has been similar but not as severe as this and has led to patient being in and out of relationships and moving frequently etc. Psych involved, reviewed care plan with Dr. Balbuena. Likely best situation would be for patient to have IP psychiatric stay for medication stabilization and then transition to assisted living but unclear if psych will accept him. For now uptitrating seroquel here as able--changed to 25 at HS as he will not take daytime dose. Could consider switch to olanzapine if seroquel not working. # MJ use: unclear how this is contributing as timeline of use is unclear, monitoring, recommending cessation # hx of prostate cancer: continue casodex # dispo: IP status, given ongoing mental instability and uncertain clinical picture will require > 48 hours stay.Care plan reviewed with CM/psychiatry. Subjective: no significant overnight events, patient reportedly told psychiatrist he would not eat or take his meds in an attempt to . When I see him, he refuses to open his eyes or interact with me. When I ask if I can listen to his heart and lungs he shakes his head no. Objective: Vital Signs Temp Pulse Resp BP Pulse Ox 36.7 C 70 16 146/75 H 95 07/28/17 03:26 07/28/17 03:26 07/28/17 03:26 07/28/17 03:26 07/28/17 03:26 Laboratory Results 07/24/17 04:29 07/27/17 07/28/17 07/29/17 05:59 05:59 05:59 Intake Total 550 150 Output Total 700 875 Balance -150 -725 lying in bed with eyes squeezed shut, will not answer questions, refusing further physical exam - Time Spent With Patient Time Spent with Patient: greater than 35 minutes Time Spent with Patient: Greater than 35 minutes spent on this patients care, greater than 50% of time spent counseling, educating, and coordinating care regarding the above mentioned plan. ICD10 Worksheet Patient Problems: Problems Problem Status Onset Cervical stenosis of spinal canal Acute Altered mental status Acute
--- NOTE | 2017-07-28 16:10 | ASMTCMCOM ---
CM Note CM Note Notes: Meeting with patient's son,Yong, , Heather and Friend Latisha, Dr. Mcmanus, Dr. Balbuena, and myself, caseworker. Yong, Heather, and Latisha have agreed to serve as proxy and the group has named Yong, patient's son as ALYSA. Patient has been delusional and paranoid and has not been decisional. He has refused medications and does not want to leave his room. He states he does not want to talk to his family but did welcome them when they stopped into visit after the meeting yesterday. Consensus at this time is patient is experiencing worsening dementia with underlying psychiatric disorder with years of paranoia and erratic behavior per patient's son. Patient was started on Seroquel with little improvement. Patient has refused to take his daytime dose and so the evening dose was increased to see if this would help. Patient did tell Dr. Balbuena today he is going to refuse to eat or take his meds in an attempt to . A referral was sent to [facility], however, it seems that patient will need to be stabilized in a geriatric psych unit prior to finding appropriate placement to patient in an assisted living or snf. We are researching [facility] in [place] per son's request. Will consult with geriatric psych units to explore admission criteria. Informed Katlyn and Mercedez Tiwari of the situation as the placement is going to be complicated. CM will follow. Date Signed: 07/28/2017 04:09 PM Electronically Signed By:Joelle Guevara LCSW
--- NOTE | 2017-07-28 16:57 | ASMTCMCOM ---
CM Note CM Note Notes: Conferenced with Katlyn, area field manager and the d/c plan will be to see if we can get patient into [facility] in [place] or [facility] in [place] first. Referrals have been sent. PASSR has been completed and sent to [facility]y [facility]do[facility]. Júnior, Admissions for [facility] called but was not available when I returned the call. Júnior's number is [phone]. Patient's son Yong has already spoken with [facility] and they do have secure units. Yong would like [facility] if possible as it is close to his home in [place] and will make visits including the grandchildren easier. Met with patient today but his confusion and delusions are worse and so was not able to discuss his options with him. CM will follow. Date Signed: 07/28/2017 04:56 PM Electronically Signed By:Joelle Guevara LCSW
[2017-07-28] MEDS: QUEtiapine FUMARATE 25 MG TAB PO SCH (20:18)
[2017-07-28] MEDS ORDERED: OLANZapine DISINTEGR 5 MG TAB PO SCH (21:00)
--- NOTE | 2017-07-28 22:04 | SOAPPROG ---
SOHEIDY Progress Note Assessment/Plan: PSYCHIATRY FOLLOW-UP 07/28/17 21:23 Present for family meeting yesterday on 07/27/17, with Dr. Mcmanus hospitalist , Joelle mental health case manager, and family- son Yong, Esther, also friend Latisha. Discussed concerns for cognitive impairment, current lack of decisional capacity, and placement options. Interviewed patient for 90min this AM. Patient refused formal assessment with Geriatric Depression scale, refused SLUMS exam. Also states he would continue to refuse any PT, OT or ST evaluations as determines they are not necessary and won't help with what he really needs, about which he was not able to elaborate. 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 States he "pretended to agree to go to a residential" yesterday when family came to visit with mental health case manager. Stated he was planning to stop eating/drinking and would like to be DNR as he was content now, and does not want to leave the hospital. It would be "the hospital's problem" to discharge him. Denies plan or intent to harm himself. Denies remembering calling 911 over weekend, although thinks he heard was at nursing station yesterday raising her voice and discussing bomb and "the nurses checked, she has the capability" and also overheard her asking if he could just be "put in an ambulance, boarded up and delivered" somewhere. "And now I understand why my son is taking her side ('s)...they are involved in a romantic relationship together, which is fine with me..." Does report having no friends in [place], no outside interests, feeling bored, not happy with his life there or situation, not particularly hopeful about anything , but maintains he's not been depressed. Continued to talk about concerns that he would soon be killed, and if he tells others and no one does anything about it, they would be considered accomplices. MSE: cooperative, in hosp bed, good eye contact, engaging. nml speech rate. elderly CM, nml psychom activity. mood frustrated, affect congruent with content of conversation. thought processes perseverative on paranoid themes, circumferential, overinclusive, not pressured. paranoid delusions noted, denied AH/VH but is convinced of hearing others talking about him as noted above. denied plan or intent to harm himself, or others, but still worries he may be harmed by others, not sure who or why, and expresses passive SI at times. insight poor, judgment poor. Oriented to person/place/time. Phone Call to son Yong Allan: Talked with son after meeting briefly yesterday , and called him this evening for almost 90min for more history, given son's report yesterday that patient has a history of depressive tendencies and anxiety (feeling "nagy closing in") with mild paranoia after marriages end. No clear jarret history, no prior florid psychosis. 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 Son did feel he has seemed more depressed recently, also he started antiandrogen treatment for metastatic prostate cancer in Fall. 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 Once he started antiandrogen therapy in Fall 2016, he did regain weight (had gotten down to about 120#) and overall patient started feeling better. Son reported father has seemed to never have emotionally deal with loss of his mother at age 15 to breast cancer, and failed relationships in part were because of his devotion to his work but also stating he has never felt anyone has loved him as much as his mother did". 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 ASSESSMENT/DIAGNOSIS: Given collateral from son, patient does seem to have some history of mood/ anxiety symptoms with mild paranoia notable during times of stress, and longstanding unresolved issues related to losing his mother at a young age, seeming chronically dysthymic over the years. Patient also is with evidence of executive dysfunction as noted by [facility] on admission. Psychosis, unspecified, r/o major depressive d/o severe with psychotic features, r/o bipolar mixed with psychotic features, r/o psychosis due to cannabis use Neurocognitive d/o, unspecified, r/o frontotemporal dementia, behavioral variant atypical with paranoia REC: incr Quetiapine to 50mg qhs. uptitrate gradually for psychosis, monitor for any EPS or other side effects, may consider change to zyprexa monitor intake, pt reporting now he plans not to eat will possibly need inpatient geriatric psychiatry for stabilization Objective: Vital Signs Temp Pulse Resp BP Pulse Ox 37.0 C 74 16 123/64 H 93 07/28/17 20:16 07/28/17 20:16 07/28/17 20:16 07/28/17 20:16 07/28/17 20:16 Laboratory Results 07/24/17 04:29 07/27/17 07/28/17 07/29/17 05:59 05:59 05:59 Intake Total 550 150 Output Total 229 875 575 Balance -150 -725 -575 - Time Spent With Patient Time Spent With Patient: 90min - Pending Discharge Pending Discharge Within 24 Hours: No Pending Discharge Within 48 Hours: No ICD10 Worksheet Patient Problems: Problems Problem Status Onset Altered mental status Acute Cervical stenosis of spinal canal Acute
[2017-07-29] MEDS: BICALUTAMIDE 50 MG TAB PO SCH (08:42)
[2017-07-29] MEDS: ENOXAPARIN 40 MG/0.4 ML SYR SC SCH (08:42)
--- NOTE | 2017-07-29 10:50 | HOSPPROG ---
Hospitalist Progress Note Assessment/Plan: 82 yo M with hx of prostate cancer presenting with AMS, delusions, psychosis # acute encephalopathy: presumed 2/2 dementia -appears improved since increasing Seroquel to 50mg HS # dementia: as above, exhibited largely by paranoia and delusions rather than memory type issues. Will need placement as patient is not safe to care for himself. # psychosis: in setting of presumed dementia, according to patients son he has had a history of paranoia in the past that has been similar but not as severe as this and has led to patient being in and out of relationships and moving frequently etc. -Dr. Balbuena with Psych following # MJ use: unclear how this is contributing as timeline of use is unclear, monitoring, recommending cessation # hx of prostate cancer: continue casodex # dispo: IP status, given ongoing mental instability and uncertain clinical picture will require > 48 hours stay.Care plan reviewed with CM/psychiatry. Plan: -He appears to be improving. He does not have any active delusions during my interview today and was pleasant and cooperative. I did speak with the staff and apparently his delusions and confusion is intermittently. Overall, he does appear to be improving on the increased Seroquel -Will cont meds as is -Psych is following. If he continues to improve then he may not need inpatient psych. this will be determined by his clinical course. -D/w CM Subjective: pleasant. no active delusion. cooperative. denies pain. does not recall the last couple of days very well Objective: Vital Signs Temp Pulse Resp BP Pulse Ox 36.9 C 71 14 105/60 92 07/29/17 07:48 07/29/17 07:48 07/29/17 07:48 07/29/17 07:48 07/29/17 07:48 Laboratory Results 07/24/17 04:29 07/28/17 07/29/17 07/30/17 05:59 05:59 05:59 Intake Total 150 Output Total 145 575 Balance -345 -178 - Physical Exam Constitutional: no apparent distress Eyes: PERRL, EOMI Ears, Nose, Mouth, Throat: moist mucous membranes, hearing normal Cardiovascular: regular rate and rhythym, no murmur, rub, or gallop, No edema Respiratory: no respiratory distress, no rales or rhonchi Gastrointestinal: normoactive bowel sounds, soft, non-tender abdomen Skin: warm Neurologic: CN II-XII Intact, No facial droop Psychiatric: interacting appropriately, not anxious, not encephalopathic Lymph, Heme, Immunologic: No petechiae ICD10 Worksheet Patient Problems: Problems Problem Status Onset Altered mental status Acute Cervical stenosis of spinal canal Acute
--- NOTE | 2017-07-29 13:51 | SOAPPROG ---
SOAP Progress Note Assessment/Plan: PSYCHIATRY FOLLOW-UP 07/29/17 16:07 Met with patient in room, son and present. Pt states he slept better last night. No complaints physically and denied any medication side effects. Did not report any unusual occurences or verbalize any paranoid thoughts or overt delusions. MSE: Patient was sitting upright, in bed, calm, cooperative, good eye contact, nml speech rate/vol. mood was "fine", affect restricted. thoughts were with decreased spontaneity, seemed reserved, with brief linear responses to questions , agreeable to plan as discussed with family to transition from inpatient hospital setting to SNF or even geriatric psychiatry. denied any SI and did not appear responding to any internal stimuli. i/j both impaired. DX: unspecified psychosis, neurocognitive disorder, unspecified PLAN: cont Seroquel 50mg hs recommend inpatient geriatric psychiatry, unless with resolving delusions, steady improvement and med compliant then could transition to SNF Objective: Vital Signs Temp Pulse Resp BP Pulse Ox 36.9 C 71 14 105/60 92 07/29/17 07:48 07/29/17 07:48 07/29/17 07:48 07/29/17 07:48 07/29/17 07:48 Laboratory Results 07/24/17 04:29 07/28/17 07/29/17 07/30/17 05:59 05:59 05:59 Intake Total 150 Output Total 371 575 Balance -725 -844 - Time Spent With Patient Time Spent With Patient: 25min with son and present - Pending Discharge Pending Discharge Within 24 Hours: No Pending Discharge Within 48 Hours: No ICD10 Worksheet Patient Problems: Problems Problem Status Onset Altered mental status Acute Cervical stenosis of spinal canal Acute
--- NOTE | 2017-07-29 16:13 | ASMTCMCOM ---
CM Note CM Note Notes: CM spoke w/ Dr. Vanessa and Dr. Balbuena regarding this case. Pt started out the day less paranoid. As the day progressed pt became more paranoid. The plan is for pt to go to [facility] psych. CM spoke w/ son and he is on board w/ this plan. Pts son would like pt to be close to him in [place], if possible. Multiple referrals made to [facility] psych facilities. [facility] does not have any male beds today. [facility] are in the process of reviewing the referral. CM to follow. Plan: Inpatient psych Date Signed: 07/29/2017 04:12 PM Electronically Signed By:LANIE Stephens
[2017-07-29] MEDS: QUEtiapine FUMARATE 25 MG TAB PO SCH (23:33)
[2017-07-30] MEDS: BICALUTAMIDE 50 MG TAB PO SCH ×2 (08:33→10:36)
[2017-07-30] MEDS: ENOXAPARIN 40 MG/0.4 ML SYR SC SCH (08:35)
[2017-07-30] MEDS ORDERED: QUEtiapine FUMARATE 25 MG TAB PO ONE (10:06)
--- NOTE | 2017-07-30 10:10 | HOSPPROG ---
Hospitalist Progress Note Assessment/Plan: 82 yo M with hx of prostate cancer presenting with AMS, delusions, psychosis. Unfortunately he refused to take his second Seroquel pill last night and only took 25mg. He has active delusions today and reports that he is ok with dying and wants to know where he should donate his organs to. He will need Amanda/Psych I will give him a one time dose of Seroquel now if he will take it. Will cont with 50mg qHS which seemed to have worked well yesterday. # acute encephalopathy: presumed 2/2 dementia -cont Seroquel to 50mg HS # dementia: as above, exhibited largely by paranoia and delusions rather than memory type issues. Will need placement as patient is not safe to care for himself. # psychosis: in setting of presumed dementia, according to patients son he has had a history of paranoia in the past that has been similar but not as severe as this and has led to patient being in and out of relationships and moving frequently etc. -Dr. Balbuena with Psych following # MJ use: unclear how this is contributing as timeline of use is unclear, monitoring, recommending cessation # hx of prostate cancer: continue casodex # dispo: IP status, given ongoing mental instability and uncertain clinical picture will require > 48 hours stay.Care plan reviewed with CM/psychiatry. Subjective: active delusions. Wondering how and when he should donate his organs. Objective: Vital Signs Temp Pulse Resp BP Pulse Ox 36.6 C 63 16 136/86 H 91 L 07/30/17 07:24 07/30/17 07:24 07/30/17 07:24 07/30/17 07:24 07/30/17 07:24 Laboratory Results 07/24/17 04:29 07/29/17 07/30/17 07/31/17 05:59 05:59 05:59 Intake Total 900 Output Total 575 200 Balance -575 700 - Physical Exam Constitutional: no apparent distress Eyes: PERRL, EOMI Ears, Nose, Mouth, Throat: moist mucous membranes, hearing normal Cardiovascular: regular rate and rhythym, No edema Respiratory: no respiratory distress, no rales or rhonchi, clear to auscultation Gastrointestinal: normoactive bowel sounds, soft, non-tender abdomen Skin: warm Neurologic: No AAOx3 Psychiatric: not anxious, encephalopathic, poor insight, No interacting appropriately Lymph, Heme, Immunologic: No petechiae ICD10 Worksheet Patient Problems: Problems Problem Status Onset Altered mental status Acute Cervical stenosis of spinal canal Acute
--- NOTE | 2017-07-30 15:21 | CPEKG ---
Heart Rate: 82 RR Interval: 732 P-R Interval: 192 QRSD Interval: 134 QT Interval: 436 QTC Interval: 510 P [place]: 15 QRS [place]: -52 T Wave [place]: 105 EKG Severity - ABNORMAL ECG - EKG Impression: SINUS ARRHYTHMIA, RATE 69-91 EKG Impression: LEFT BUNDLE BRANCH BLOCK Electronically Signed By: Ramiro Rojas 30-Jul-2017 15:47:45
--- NOTE | 2017-07-30 15:37 | ASMTCMCOM ---
CM Note CM Note Notes: Today SWer worked on several options for d/c planning. Consulted with son, Yong WATT . Consulted with bedside RN. 1) Plan A is to try to find an admitting geriatric psychiatric placement. Anticipate possible problems with this route due to Pt's suspected dementia and testing on the MOCA. Most geriatric psychiatry facilities do not take Pt.s with dementia. Pt. may need to be placed on M1 Hold if transferred to geriatric psych facility. SWer had to hard fax referrals to geriatric psych due to their non-participation in [employer] database. - [facility] [phone] - Faxed addtional labs and tox screen info in addition to referral packet. Tesha at [facility] would also like an EKG done to ensure Pt's heart can safely manage certain psychiatric medications. Hospitalist ordered EKG today. - [facility] Unit [facility], [phone]. Faxed referral and await return contact from Kiki. - [facility] - [phone] - Marylu to review Pt's case. - [facility] Geriatric Psychiatry program denied Pt. due to MOCA score indicating dementia. - [facility] - states we must call daily to see if there are any discharges from their program. - [facility] states they are full and people don't d/c regularly. - [facility] denied case due to dementia. - [facility] ([place], [place]) denied Pt. due to dementia. 2) Plan B is to place Pt. in a SNF - [facility] C[facility] . SWer spoke with robert Doty, who will review case - [facility] . robert Cárdenas, is going to consult with her team regarding Pt's placement there. 3) Plan C is to place Pt. in a more permanent assisted living situation straight from [facility] . [place] is interested in placing Pt. there care home. Has not completed paperwork yet. Dany from [facility] states that there is no SNF associated with their AL/Memory Care and that their respite program has the same admissions lengthy paperwork. Dany states that if son Yong completes the application and admissions requirements they could get Pt. in, in about "three days". Yong has apparently worked with Júnior at [facility] in the past. NOTE: Zoe Segovia from [facility] came to see Pt. today to complete Level 2 PASRR. Louisa left a packet of medical records for her that she requested. Louisa called Zoe to check in. Zoe thought that Pt's psychiatric and cognitive symptoms seemed better than what is in the records. Await her completed assessment which is likely to be completed tomorrow per Zoe. Zoe states that her SLUMS did not trigger for dementia. Zoe willing to fax us her SLUMS to assist with placement if necessary. SW/LEN to follow for d/c plan of care. Date Signed: 07/30/2017 03:36 PM Electronically Signed By:Katy Middleton LCSW
[2017-07-30] MEDS: QUEtiapine FUMARATE 25 MG TAB PO SCH (23:10)
[2017-07-31] MEDS: BICALUTAMIDE 50 MG TAB PO SCH (08:03)
[2017-07-31] MEDS: ENOXAPARIN 40 MG/0.4 ML SYR SC SCH (08:19)
--- NOTE | 2017-07-31 11:11 | HOSPPROG ---
Hospitalist Progress Note Assessment/Plan: 82 yo M with hx of prostate cancer presenting with AMS, delusions, psychosis. Unfortunately he refused to take his second Seroquel pill last night and only took 25mg. He will need Amanda/Psych Placement pending # acute encephalopathy: presumed 2/2 dementia -cont Seroquel to 50mg HS, although he has only taken 25mg. #Prolonged QT: -EKG shows QTc 510 -no palpitations, syncope, or dizziness. Asymptomatic -Check BMP and Mg now -Will not tolerate tele -possibly from Seroquel. Would not increase past 50mg at this time. # dementia: as above, exhibited largely by paranoia and delusions rather than memory type issues. Will need placement as patient is not safe to care for himself. # psychosis: in setting of presumed dementia, according to patients son he has had a history of paranoia in the past that has been similar but not as severe as this and has led to patient being in and out of relationships and moving frequently etc. -Dr. Balbuena with Psych following # MJ use: unclear how this is contributing as timeline of use is unclear, monitoring, recommending cessation # hx of prostate cancer: continue casodex # dispo: IP status, given ongoing mental instability and uncertain clinical picture will require > 48 hours stay.Care plan reviewed with CM/psychiatry. Subjective: reports that the likes his room and doesnt want to leave until he figures out whats wrong with him. Objective: Vital Signs Temp Pulse Resp BP Pulse Ox 36.8 C 74 14 109/59 L 94 07/31/17 07:34 07/31/17 07:34 07/31/17 07:34 07/31/17 07:34 07/31/17 07:34 Laboratory Results 07/24/17 04:29 07/30/17 07/31/17 08/01/17 05:59 05:59 05:59 Intake Total 900 Output Total 200 175 Balance 700 -175 - Physical Exam Constitutional: no apparent distress Eyes: PERRL, EOMI Ears, Nose, Mouth, Throat: moist mucous membranes, hearing normal Cardiovascular: regular rate and rhythym, No edema Respiratory: no respiratory distress, no rales or rhonchi, clear to auscultation Gastrointestinal: normoactive bowel sounds, soft, non-tender abdomen Neurologic: AAOx3 Psychiatric: interacting appropriately, not anxious, poor insight, poor judgement, poor memory Lymph, Heme, Immunologic: No petechiae ICD10 Worksheet Patient Problems: Problems Problem Status Onset Altered mental status Acute Cervical stenosis of spinal canal Acute
--- NOTE | 2017-07-31 15:50 | ASMTCMCOM ---
CM Note CM Note Notes: Today Louisa worked to place Pt. by calling several facilities. In the end, Kiki from [facility] in [place] or accepted Pt. Plan to admit him on August 02. Plan is to have Pt. d/c via [facility] stretcher NOT on an M1 Hold per [facility]. Please hard fax d/c paperwork to [phone]. If there are any new behavioral health notes, please fax those as well. Please have bedside RN provide report at . Today faxed Kiki Pt's Living Will. [facility] form already faxed. Louisa called [facility] [place] [facility] to update him. Let Yong know that it is difficult to get Pts into geriatric psych facilities and that I understand that [place] is further away than a [place] placement. Yong interested, but still also seems to be pursuing other options. Let Yong know about assistance to help him with getting Assisted Living paperwork done. Yong said he already knew about [facility]". Louisa called Dr. Batool Balbuena to update her. Dr. Balbuena very pleased about geriatric psychiatry placement. Unfamiliar about facility, but will look it up. Louisa suggested that Dr. Balbuena may want to call Yong to help him along with decision-making regarding geriatric psychiatric placement. Dr. Balbuena feels it is the best placement to help bridge Pt. into eventual Assisted Living. Louisa also updated hospitalist Dr. Vanessa today. Plan as of today: D/c Pt. to [facility] [place] unit in [place] on August 02 via [facility] stret[facility]. No M1 Hold. Please keep [facility] son Yong informed. RN to give report to . Date Signed: 07/31/2017 03:50 PM Electronically Signed By:Katy Middleton LCSW
--- NOTE | 2017-07-31 17:07 | ASMTCMCOM ---
CM Note CM Note Notes: Per Kiki at [facility], Pt's MDPOA/son Yong did not respond quick enough to sign consents for a Thursday discharge. Kiki and CMs to get in touch on Thursday for a planned d/c on Thursday to [facility] unit. Please see previous note for all contact information and fax information. Date Signed: 07/31/2017 05:07 PM Electronically Signed By:Katy Middleton LCSW
[2017-07-31] MEDS: QUEtiapine FUMARATE 25 MG TAB PO SCH (23:49)
[2017-08-01] MEDS: QUEtiapine FUMARATE 25 MG TAB PO SCH (01:09)
[2017-08-01] MEDS: BICALUTAMIDE 50 MG TAB PO SCH (08:27)
[2017-08-01] MEDS: ENOXAPARIN 40 MG/0.4 ML SYR SC SCH (09:05)
--- NOTE | 2017-08-01 09:24 | HOSPPROG ---
Hospitalist Progress Note Assessment/Plan: 82 yo M with hx of prostate cancer presenting with AMS, delusions, psychosis. Unfortunately he refused to take his second Seroquel pill last night and only took 25mg. He will need Amanda/Psych Placement pending # acute encephalopathy: presumed 2/2 dementia -cont Seroquel to 50mg HS, although he has only taken 25mg. #Prolonged QT: -EKG shows QTc 510 -no palpitations, syncope, or dizziness. Asymptomatic -Check BMP and Mg now -Will not tolerate tele -possibly from Seroquel. Would not increase past 50mg at this time. # dementia: as above, exhibited largely by paranoia and delusions rather than memory type issues. Will need placement as patient is not safe to care for himself. # psychosis: in setting of presumed dementia, according to patients son he has had a history of paranoia in the past that has been similar but not as severe as this and has led to patient being in and out of relationships and moving frequently etc. -Dr. Balbuena with Psych following # MJ use: unclear how this is contributing as timeline of use is unclear, monitoring, recommending cessation # hx of prostate cancer: continue casodex # dispo: IP status, given ongoing mental instability and uncertain clinical picture will require > 48 hours stay.dc to [facility] thursday Subjective: no new events Objective: Vital Signs Temp Pulse Resp BP Pulse Ox 37.2 C 74 16 93/57 L 96 08/01/17 08:00 08/01/17 08:00 08/01/17 08:00 08/01/17 08:00 08/01/17 08:00 Laboratory Results 07/24/17 04:29 07/31/17 08/01/17 08/02/17 05:59 05:59 05:59 Intake Total 320 Output Total 475 Balance -155 - Physical Exam Constitutional: no apparent distress, appears nourished, not in pain Eyes: anicteric sclera, EOMI Respiratory: no respiratory distress Skin: warm Psychiatric: other (some grandioise thinking. ) ICD10 Worksheet Patient Problems: Problems Problem Status Onset Altered mental status Acute Cervical stenosis of spinal canal Acute
--- NOTE | 2017-08-01 17:07 | ASMTCMCOM ---
CM Note CM Note Notes: Son/ALYSA [place] called and asked for CM today. Yong had questions about why staff hadn't told Pt. about his plan for d/c to [facility]. CM explained that team was concerned that Pt. would have increased delusions or paranoia and would have to wait for three days before admission to [facility]. Concerned we may have to place M1 Hold and move Pt. to ICU. Yong understood decision. Yong plans to communicate w/ staff tomorrow (Sun) and wants to be called by CM as early as possible on Thursday morning and perhaps he can come to [facility] to be here for d/c to [facility]. Please call [facility] early on Thursday to determine d/c plan and then call Yong. Date Signed: 08/01/2017 05:07 PM Electronically Signed By:Katy Middleton LCSW
[2017-08-02] MEDS: QUEtiapine FUMARATE 25 MG TAB PO SCH ×2 (01:49→23:03)
[2017-08-02] MEDS: BICALUTAMIDE 50 MG TAB PO SCH (09:31)
[2017-08-02] MEDS: ENOXAPARIN 40 MG/0.4 ML SYR SC SCH (09:31)
--- NOTE | 2017-08-02 09:56 | HOSPPROG ---
Hospitalist Progress Note Assessment/Plan: 82 yo M with hx of prostate cancer presenting with AMS, delusions, psychosis. # acute encephalopathy: presumed 2/2 dementia -cont Seroquel to 50mg HS, although he has only taken 25mg. #Prolonged QT: -EKG shows QTc 510 -no palpitations, syncope, or dizziness. Asymptomatic -Check BMP and Mg now -Will not tolerate tele -possibly from Seroquel. Would not increase past 50mg at this time. # dementia: as above, exhibited largely by paranoia and delusions rather than memory type issues. Will need placement as patient is not safe to care for himself. # psychosis: in setting of presumed dementia, according to patients son he has had a history of paranoia in the past that has been similar but not as severe as this and has led to patient being in and out of relationships and moving frequently etc. -Dr. Balbuena with Psych following # MJ use: unclear how this is contributing as timeline of use is unclear, monitoring, recommending cessation # hx of prostate cancer: continue casodex # dispo: IP status, given ongoing mental instability and uncertain clinical picture will require > 48 hours stay.dc to [facility] thursday Subjective: no new complaints Objective: Vital Signs Temp Pulse Resp BP Pulse Ox 36.8 C 80 14 114/56 L 96 08/02/17 08:00 08/02/17 08:00 08/02/17 08:00 08/02/17 08:00 08/02/17 08:00 Laboratory Results 07/24/17 04:29 08/01/17 08/02/17 08/03/17 05:59 05:59 05:59 Intake Total 320 1400 Output Total 475 Balance -155 1400 - Physical Exam Constitutional: no apparent distress, appears nourished, not in pain Respiratory: no respiratory distress Neurologic: AAOx3 Psychiatric: interacting appropriately ICD10 Worksheet Patient Problems: Problems Problem Status Onset Altered mental status Acute Cervical stenosis of spinal canal Acute
--- NOTE | 2017-08-02 16:48 | ASMTCMCOM ---
CM Note CM Note Notes: CM spoke with GUALBERTO Lacy, discharge plan continues to be likely 08/03/17 to [facility]. Patient has been made aware of this plan but is not in agreement, continues to present with paranoia and fearfulness Please call KATEY Garcia early Thursday AM and Yong, son, who will try to be here when discharge occurs. CM to follow and available for further CM needs. Current D/C plan: 08/03/17 to [facility]. Date Signed: 08/02/2017 04:48 PM Electronically Signed By:Rebecca Guerrero
[2017-08-03] MEDS: BICALUTAMIDE 50 MG TAB PO SCH (08:19)
[2017-08-03 08:29] VITALS: BP 118/55
[2017-08-03] MEDS: ENOXAPARIN 40 MG/0.4 ML SYR SC SCH (09:38)
--- NOTE | 2017-08-03 11:01 | PDIAF ---
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 - Orders Services needed: Registered Nurse, Certified Local Company Tanker Driver, Master Office Secretary Isolation Type: None Diet Recommendation: no restrictions on diet Diet Texture: Regular Texture Diet - Follow Up Care Current Providers and Referrals: Stephanie Shepard MD [Primary Care Provider] - As per Instructions
--- NOTE | 2017-08-03 11:02 | PDIAF ---
- Diagnosis Diagnosis: Psychosis with some history of depression, possible dementia, marijuana use Code Status: Full Code - Medication Management Discharge Medications: Medications to Continue on Transfer Zolpidem Tartrate [Ambien 10 mg] 5 - 10 mg PO DAILY PRN 07/14/14 [Last Taken 22:00 5 MG] Bicalutamide [Casodex (*)] 50 mg PO DAILY 07/23/17 [Last Taken 07/22/17 09:00] QUEtiapine FUMARATE [Seroquel 25 mg (*)] 50 mg PO HS tab 08/03/17 [Last Taken Unknown] Discharge Medications: Refer to the Discharge Home Medication list for PRN reason. - Orders Services needed: Registered Nurse, Certified Resolution Manager, Master Sales Commissions Analyst Isolation Type: None Diet Recommendation: no restrictions on diet Diet Texture: Regular Texture Diet - Follow Up Care Current Providers and Referrals: Stephanie Shepard MD [Primary Care Provider] - As per Instructions
--- NOTE | 2017-08-03 11:03 | PDDCSUM ---
Discharge Summary Discharge Summary: DISCHARGE DIAGNOSES: -acute psychosis with paranoia and delusions including delusions of grandeur -question of possible frontotemporal dementia -some history of depression and anxiety symptoms, possibility that major depression with psychotic features could explain his current illness -marijuana use in the way of apples -use of tramadol at home -history of prostate cancer on bicalutamide CONSULTANTS: Dr. 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 He comes into the hospital at this time through the ER. He had been brought in by a friend and was accompanied also by his son. He had apparently recently had a split with significant other, and left his home. He had been sending some very rambling letters an e-mail to friends and also sending them to the [email or web address] and the enters of time maggots seen and other institutions. Most of these are regarding the topic of breast cancer and how breast cancer system is failing and how he he has figured out how to change the entire approach to managing breast cancer under country but no one will listen to him. There been other issues with paranoia and he is repeatedly stated that he feels threatened and is wondering why the hospital here feels threatened. The patient's friend family notice that this is a significant change for him, although his son mentions that he has had similar issues after previous break ups with prior 's. The patient has had some tendency to depression but has not really carried an ongoing diagnosis of a mental health illness per se that we are aware of. His overall physical health was good here. There is a question of whether there is some possible frontal lobe dementia. TSH, B12 levels, RPR were all normal, as were general chemistries and CBC. The main abnormal finding on his laboratory test was a non negative finding for marijuana in the urine consistent with his use of a double marijuana products. Brain imaging studies were unrevealing for anything relevant or concerning. It is notable that the patient does use some edible marijuana products out of hospital and indeed did test positive for marijuana in his urine at this time. There is concern that this could be impacting his symptoms though it sounds like it may be a more chronic use compared to his symptoms at present. He does also have partly prescription for tramadol and does take some of that which could potentially affect his symptoms to some degree. It did not sound that there were other substance abuse issues at all. The patient was seen by Dr. Balbuena from Psychiatry who agreed that there was acute psychosis at this time of uncertain and possibly multifactorial etiology. He was started on some Seroquel here and so far has tolerated that medicine reasonably well, however he is having ongoing significant delusional thought content, flight of ideas, pressured speech, paranoia, grandiosity. He does not have good insight into his psychosis symptoms or issues. At this point because of the patient having no were specific to go where he can be safely managed and monitored, as well as uncontrolled symptoms started on new therapy just recently , it is elected to transfer him to an inpatient Behavioral Health Unit specializing and geriatric patients and this has been arranged for today. PENDING TEST RESULTS: None MEDICATION CHANGES: Addition of Seroquel 50 mg daily FOLLOW-UP PLAN: He is to transfer today to a inpatient Behavioral Health Unit specializing in geriatric patients, and upon discharge from there will be referred to outpatient mental health assessment and therapy. Greater than 35 minutes bedside and care coordination time today
--- NOTE | 2017-08-03 13:38 | SOAPPROG ---
TIANA Progress Note Assessment/Plan: 08/03/17 13:23 Evaluated patient this AM for follow-up. Patient was sitting up in chair in room , with son present. "I'm not gonna threaten anyone..." States he has been eating well but with interrupted sleep over the weekend. Acknowledged med noncompliance with Quetiapine 50mg hs, states he declined a few times but insisted that he took it last night, and then speculated pills may have dropped into the bed and gotten lost, or perhaps they checked his urine after he took the meds to determine whether he took them or not. Denied having any concerns about his safety recently, although added "I'm not sure who' s who, who's the good rubina and who's the bad rubina..." but felt safe, although "if someone wants to shoot me, I can't do anything about that." Then began asking son if all of his family members were safe and if was safe, and if he knew if anyone has been charged with anything. Son continued to reassure patient. Became irritable when plan for d/c today was discussed. Does not know why he can 't just stay here in the hospital. "It's my civil right" to stay in hospital. Explained this is not a residence and he has no acute medical illness. This did not matter, patient insisted he did not want to leave, giving no other reason except repeating that it is his "right" to stay here, and how rights in this country are often being violated and the country is essentially going downhill, and he would prefer not even to remain in this country. However, patient was unable to state where he would go otherwise or how he would care for himself, acknowledging he "needs someone to help me" with meals, laundry, and possibly finances, "I'll find something." Often indicated he did not remember or recall some events and discussions from last week and argued with son about incidents he insisted occurred or did not occur which did not seem based in reality. MSE: elderly CM, sitting upright in chair, good eye contact, articulate speech, with nml psychomotor activity. affect initially calm but became increasingly irritable and agitated when discharge from hospital discussed, and when reminded this was plan all had agreed to last week for continuing assessment and stabilization. seemed to verbalize more paranoid ideations as affect intensity increased, requiring periodic verbal redirection. then insisted he heard someone outside his door this AM talking about him referring to "that [employer] ". Did not appear responding to internal stimuli at time of interview but seems may at times experience AH as noted by this comment. Did not report any SI/HI but indicated he has "nothing." Insight poor, judgment poor. Alert and oriented to place, person, July " or " 2017. DX: Psychosis, unspecified- r/o major depressive d/o severe with psychotic features , r/o bipolar mixed with psychotic features, r/o psychosis due to cannabis use Neurocognitive d/o, unspecified- r/o frontotemporal dementia, behavioral variant atypical with paranoia. Dysexecutive functioning. Cannabis use disorder, unspecified REC: Cont Quetiapine 50mg qhs. Has been refusing recently. Consider change to zyprexa low dose Transferring today to inpatient geriatric psychiatry for stabilization Patient is not felt to have capacity to make decisions regarding placement or medical care Will place on M-1 for grave disability. Provided patient with copy and copy of rights. ADDENDUM: Phone call to [facility] health facility to update- they do not accept M-1 holds but accept patients voluntarily or if signed in by proxy/MD FITZPATRICK if without capacity, the latter which is already in place. After patient talked with RN, and son had left, and patient apparently with less overstimulation, patient agreed to transfer, "I'll go". Returned to pt room after receiving this info, with director of case mgmt services Mercedez Vargas present, and patient consistently stated he agreed to transfer. M-1 had already been placed at 11:55a, and in discussion with EMT transport svcs, plan is to keep M-1 in place for patient safety and transport. Objective: Vital Signs Temp Pulse Resp BP Pulse Ox 36.6 C 72 16 118/55 L 96 08/03/17 08:00 08/03/17 08:00 08/03/17 08:00 08/03/17 08:00 08/03/17 08:00 Laboratory Results 07/24/17 04:29 08/02/17 08/03/17 08/04/17 05:59 05:59 05:59 Intake Total 1400 730 Output Total 125 Balance 1400 605 - Time Spent With Patient Time Spent With Patient: 45min - Pending Discharge Pending Discharge Within 24 Hours: Yes Pending Discharge Within 48 Hours: No Pending Discharge Date: 08/03/17 Pending Discharge Time: 12:00 ICD10 Worksheet Patient Problems: Problems Problem Status Onset Altered mental status Acute Cervical stenosis of spinal canal Acute
--- NOTE | 2017-08-03 15:50 | ASDISCHSUM ---
Discharge Information Plan Status:Psych Placement/Petitioned Medically Cleared to Leave:08/03/2017 Discharge Date:08/03/2017 12:59 PM CM D/C Disposition:Other Psych, Not Yuval ADT D/C Disposition:Other Psych, Not Ilion Projected Discharge Date:08/03/2017 11:00 AM Transportation at D/C: Discharge Delay Reason: Follow-Up Date:08/03/2017 11:00 AM Discharge Slot:1 - 8:01 am - 12:00 noon Final Diagnosis: Placement Information Referral Type:Assisted Living Residence Referral ID:[id number] Provider Name: Address 1: Phone Number: Address 2: Fax Number: City: Selection Factors: State: Referral Type:*Halfway/SNF Referral ID:[id number] Provider Name: Address 1: Phone Number: Address 2: Fax Number: City: Selection Factors: State: Referral Type:Assisted Living Residence Referral ID:[id number] Provider Name: Address 1: Phone Number: Address 2: Fax Number: City: Selection Factors: State: Referral Type:Psychiatric Hospital or Unit Referral ID:[id number] Provider Name: Address 1: Phone Number: Address 2: Fax Number: City: Selection Factors: State: Patient Contact Information Contact Name:SONIA Relationship:Bari Address: City: [facility] Phone: [facility] Code: Email: Financial Information Financial Class:Medicare Primary Plan Desc:MEDICARE INPATIENT Primary Plan Number:[id number] Secondary Plan Desc: [facility] Secondary Plan Number:[id number] Assessment Information [facility] CM Progress Note CM Note CM Note Notes: Pt. is an 82-year-old man admitted with confusion, paranoia, and encephalopathy. Hx. prostate cancer. Hx. of having six sequential wives per H&P. Hx. of using marijuana edibles. Unsure if this admission is related to THC use. [facility] reportedly saw Pt, but hospitalist ordered psychiatric evaluation. Reportedly, Batool Balbuena MD to see Pt. today. Tox screen positive for THC. Pt. has a son Yong who is involved. 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 No PT/OT ordered as of yet. CM to follow. 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 He is ambulatory but presents with confusion and paranoia. He will need placement, his son Yong has contacted [facility] in [facility]. Per RN, pt given consent to speak with Son Yong [phone]. CM called, Yong states he is mdpoa but concedes he does not have anything in writing, expained to son we will need to have pt sign that he wants Yong as mdpoa or if pt unable we will need to establish a proxy, CM will discuss with . CM advised Yong to continue plan for AL at [facility] as that can take some time and we may need to transition pt to a SNF in the interim. Son agrees with LEN milton w/fYony MOREIRA Plan: TBD Date Signed: 07/25/2017 10:36 AM Electronically Signed By:Daniela Mayorga RN [facility] CM Progress Note CM Note CM Note Notes: Met w/pt re; dc SNF/AL. Pt now states he does not want me to speak with his son Yong. He states he feels very safe here and is not interested in SNF or AL, "maybe sometime in the future but right now i'm staying here until we figure out what is going on." Notified , pt still getting work up, may need Ethics consult on Thursday, LEN w/fYony MOREIRA Plan: TBD Date Signed: 07/25/2017 04:58 PM Electronically Signed By:Daniela Mayorga RN [facility] Progress Note CM Note CM Note Notes: Chart reviewed. Discussed with MD. Met with patient this afternoon. During my meeting he was telling me the events that brought him to the hospital. He goes into great detail about his time since 07/06 when he voluntarily left his home and came to [place]. He seems to have periods of extreme delusion and paranoia . He is refusing to speak to his family at present. He is refusing medications and therapies. Speech unable to assess his cognitive abilities as he refused to work with them. He states he is willing to go to assisted living if he has a security guard supervisor. There is no POA. His son Yong and his are to come to a family meeting tomorrow at [address] Balbuena and [address]. Mcmanus to attend as well. Dr. Balbuena can be reached at [phone]. CM to follow. Plan: Assisted living vs SNF Date Signed: 07/26/2017 02:46 PM Electronically Signed By:Remedios Alcaraz RN [facility] Progress Note CM Note CM Note Notes: Meeting with patient's son,Yong, , Heather and Friend Latisha, Dr. Mcmanus, Dr. Balbuena, and myself, case checker. Yong, Heather, and Latisha have agreed to serve as proxy and the group has named Yong, patient's son as ALYSA. Patient has been delusional and paranoid and has not been decisional. He has refused medications and does not want to leave his room. He states he does not want to talk to his family but did welcome them when they stopped into visit after the meeting yesterday. Consensus at this time is patient is experiencing worsening dementia with underlying psychiatric disorder with years of paranoia and erratic behavior per patient's son. Patient was started on Seroquel with little improvement. Patient has refused to take his daytime dose and so the evening dose was increased to see if this would help. Patient did tell Dr. Balbuena today he is going to refuse to eat or take his meds in an attempt to . A referral was sent to [facility], however, it seems that patient will need to be stabilized in a geriatric psych unit prior to finding appropriate placement to patient in an assisted living or snf. We are researching [facility] in [place] per son's request. Will consult with geriatric psych units to explore admission criteria. Informed Katlyn and Mercedez Tiwari of the situation as the placement is going to be complicated. CM will follow. Date Signed: 07/28/2017 04:09 PM Electronically Signed By:Joelle Guevara LCSW [facility] Progress Note CM Note CM Note Notes: Conferenced with Katlyn, and the d/c plan will be to see if we can get patient into [facility] in [place] or [facility]. Referrals have been sent. PASSR has been completed and sent to Katy Ordoñez. Júnior, Admissions for [facility] called but was not available when I returned the call. Júnior's number is [phone]. Patient's son Yong has already spoken with Jún[facility] and they do have secure units. Yong would like [facility] if possible as it is close to his home in [place] and will make visits including the grandchildren easier. Met with patient today but his confusion and delusions are worse and so was not able to discuss his options with him. CM will follow. Date Signed: 07/28/2017 04:56 PM Electronically Signed By:Joelle Guevara LCSW [facility] LEN Progress Note CM Note CM Note Notes: CM spoke w/ Dr. Vanessa and Dr. Balbuena regarding this case. Pt started out the day less paranoid. As the day progressed pt became more paranoid. The plan [facility]. CM spoke w/ son and he is on board w/ this plan. Pts son would like pt to be close to him in [place], if possible. Multiple referrals made to [facility] psych facilities. [facility] does not have any male beds today. [facility] and [facility] are in the process of reviewing the referral. CM to follow. Plan: Inpatient psych Date Signed: 07/29/2017 04:12 PM Electronically Signed By:LANIE Stephens [facility] L[facility] Progress Note CM Note CM Note Notes: Today Louisa worked on several options for d/c planning. Consulted with son, Yong [facility] . Consulted with bedside RN. 1) Plan A is to try to find an admitting geriatric psychiatric placement. Anticipate possible problems with this route due to Pt's suspected dementia and testing on the MOCA. Most geriatric psychiatry facilities do not take Pt.s with dementia. Pt. may need to be placed on M1 Hold if transferred to geriatric psych facility. SWer had to hard fax referrals to geriatric psych due to their non-participation in [employer] database. - [facility] [phone] - Faxed addtional labs and tox screen info in addition to referral packet. Tesha at [facility] would also like an EKG done to ensure Pt's heart can safely manage certain psychiatric medications. Hospitalist ordered EKG today. - [facility], [phone]. Faxed referral and await return contact from Kiki. - [facility] - [phone] - Marylu to review Pt's case. - [facility] Geriatric Psychiatry program denied Pt. due to MOCA score indicating dementia. - [facility] - states we must call daily to see if there are any discharges from their program. - [facility] states they are full and people don't d/c regularly. - [facility] denied case due to dementia. - [facility] denied Pt. due to dementia. 2) Plan B is to place Pt. in a SNF - [facility] . SWer spoke with robert Doty, who will review case - [facility] . robert Cárdenas, is going to consult with her team regarding Pt's placement there. 3) Plan C is to place Pt. in a more permanent assisted living situation straight from [facility] - [facility] . [facility] is interested in placing Pt. there snf. Has not completed paperwork yet. Dany from [facility] states that there is no SNF associated with their AL/Memory Care and that their respite program has the same admissions lengthy paperwork. Dany states that if son Yong completes the application and admissions requirements they could get Pt. in, in about "three days". Yong has apparently worked with Júnior at [facility] in the past. NOTE: Zoe Segovia from [facility] came to see Pt. today to complete Level 2 PASRR. [place] left a packet of medical records for her that she requested. Louisa called Zoe to check in. Zoe thought that Pt's psychiatric and cognitive symptoms seemed better than what is in the records. Await her completed assessment which is likely to be completed tomorrow per Zoe. Zoe states that her SLUMS did not trigger for dementia. Zoe willing to fax us her SLUMS to assist with placement if necessary. SW/LEN to follow for d/c plan of care. Date Signed: 07/30/2017 03:36 PM Electronically Signed By:Katy Middleton LCSW [facility] Progress Note CM Note CM Note Notes: Today Louisa worked to place Pt. by calling several facilities. In the end, Kiki from [facility] in [place] or accepted Pt. Plan to admit him on August 02. Plan is to have Pt. d/c via [facility] stretcher NOT on an M1 Hold per [facility]. Please hard fax d/c paperwork to [phone]. If there are any new behavioral health notes, please fax those as well. Please have bedside RN provide report at . Today faxed Kiki Pt's Living Will. MDPOA form already faxed. Louisa called [facility] to update him. Let Yong know that it is difficult to get Pts into geriatric psych facilities and that I understand that [place] is further away than a [place] placement. Yong interested, but still also seems to be pursuing other options. Let Yong know about assistance to help him with getting Assisted Living paperwork done. Yong said he already knew about [facility]". Louisa called Dr. Batool Balbuena to update her. Dr. Balbuena very pleased about geriatric psychiatry placement. Unfamiliar about facility, but will look it up. Louisa suggested that Dr. Balbuena may want to call Yong to help him along with decision-making regarding geriatric psychiatric placement. Dr. Balbuena feels it is the best placement to help bridge Pt. into eventual Assisted Living. Louisa also updated hospitalist Dr. Vanessa today. Plan as of today: D/c Pt. to [facility] [place] on August 02 via [facility] persaud. No M1 Hold. Please keep [facility] informed. RN to give report to . Date Signed: 07/31/2017 03:50 PM Electronically Signed By:Katy Middleton LCSW [facility] CM Progress Note CM Note CM Note Notes: Per Kiki at [facility], Pt's [facility] did not respond quick enough to sign consents for a Thursday discharge. Kiki and [facility] to get in touch on Thursday for a planned d/c on Thursday to [facility] unit. Please see previous note for all contact information and fax information. Date Signed: 07/31/2017 05:07 PM Electronically Signed By:Katy Middleton LCSW [facility] Progress Note CM Note CM Note Notes: Son/ALYSA [facility] called and asked for CM today. Yong had questions about why staff hadn't told Pt. about his plan for d/c to [facility]. CM explained that team was concerned that Pt. would have increased delusions or paranoia and would have to wait for three days before admission to [facility]. Concerned we may have to place M1 Hold and move Pt. to ICU. Yong understood decision. Yong plans to communicate w/ staff tomorrow (Sun) and wants to be called by CM as early as possible on Thursday morning and perhaps he can come to [facility] to be here for d/c to [facility]. Please call [facility] early on Thursday to determine d/c plan and then call Yong. Date Signed: 08/01/2017 05:07 PM Electronically Signed By:Katy Middleton LCSW [facility] Progress Note CM Note CM Note Notes: CM spoke with GUALBERTO Lacy, discharge plan continues to be likely 08/03/17 to [facility]. Patient has been made aware of this plan but is not in agreement, continues to present with paranoia and fearfulness Please call [facility] early Thursday AM and Yong, son, who will try to be here when discharge occurs. CM to follow and available for further CM needs. Current D/C plan: 08/03/17 to [facility]. Date Signed: 08/02/2017 04:48 PM Electronically Signed By:Rebecca Guerrero Case Management Discharge Plan Note Case Management Discharge Discharge Order Complete? Answers: Yes Patient to Obtain Answers: Other Notes: [facility], [facility] th Transportation Arranged Answers: [facility] Stretcher Transport will Pick (Date 08/03/2017 12:00 AM & Time) Case Management Transport Answers: Yes Notes: [facility] Form Complete Center - [facility] Faxed Final Orders Answers: Yes Notes: [facility] Agency/Facility Transfer Answers: Yes Notes: [facility] Medical Report Printed & Faxed to Center Receiving Agency Family Notified Answers: Yes Notes: Yong wu Discharge Comments Notes: Patient was initially reluctant to leave the hospital but ultimately agreed. Patient was placed on an M1 hold for the transport to the [facility]-psych unit. We will drop the hold as soon as patient arrives since the facility is voluntary and does not take any patient's on holds. Regino, patient's nurse called report. D/c summaries and medication lists were faxed to the facility. [facility] had attempted to get POA papers signed but patient did not want to. No further needs at this time. Date Signed: 08/03/2017 02:46 PM Electronically Signed By:Joelle Guevara LCSW Intervention Information Intervention Type:*CABA-Signed Date of Service:07/24/2017 11:21 AM Patient Type:Observation Staff Member:Marilynn Weldon Hours: Discipline: Severity: Comment: Intervention Type:IM-Refused Date of Service:07/31/2017 10:44 AM Patient Type:Inpatient Staff Member:Marilynn Weldon Hours: Discipline: Severity: Comment:Patient stated he did not want to sign any Medicare forms.
== END 2017-08-03 12:59 | DRG 885 ==
LOC: OBSVTOIN 20:40 → F3E 21:58
PROVIDERS: ADMIT Internal Medicine; ATTEND Internal Medicine
DX: F23 Brief psychotic disorder (principal); F22 Delusional disorders; R41.9 Unspecified symptoms and signs involving cognitive functions and awareness; G93.40 Encephalopathy, unspecified; F12.90 Cannabis use, unspecified, uncomplicated; I25.10 Atherosclerotic heart disease of native coronary artery without angina pectoris; K21.9 Gastro-esophageal reflux disease without esophagitis; Z85.46 Personal history of malignant neoplasm of prostate; Z95.5 Presence of coronary angioplasty implant and graft
CPT/HCPCS: 80305; 82607-90; 92523-GN; G0378; G0480; G9168-GN-CJ; G9169-GN-CI; J1650; Q9967